=== PATIENT | male | born 1950 | race Caucasian/White ===

== ENCOUNTER 2018-09-23 18:20 | Emergency (ER) | payer MEDICARE, OTHER ==
[~2018-09-23] VITALS: Ht 177.8 cm; Wt 87.5 kg
[~2018-09-23 18:20] MED LIST: ACETAMINOPHEN650 M5; ADULT LOW DOSE81 MG PO; ASPIRIN325; BENADRYL25 MG PO; DULCOLAX STOOL100 MG PO; LISINOPRIL20 MG PO; METAMUCIL PAC1 UDPKT; MOM; NICOTINE TRANSD14 M1; NORCO 5-325 TA1 EACH PO; PERCOCET 5-3251 EACH; PRILOSEC 20 MG20 MG PO; TRAMADOL 50 MG50 MG PO; XARELTO10 M1
[2018-09-23] MEDS ORDERED: COZAAR 25 MG TA25 M1 PO (18:36)
[2018-09-23] MEDS ORDERED: MOBIC15 MG PO (18:36)
[2018-09-23] MEDS ORDERED: KEFLEX500 M1 PO (20:31)
[2018-09-23] MEDS ORDERED: NORCO 7.5-3251 EACH PO (20:31)
[2018-09-23 20:40] VITALS: BP 177/90
--- NOTE | 2018-09-28 13:59 | CON ---
[address] [address] CONSULTATION Name: RAHELKATE L Room: [facility]#: [id number] Admission: 09/23/18 Attend Phys: Discharge: 09/23/18 Date of : 50 Report #: [id number] THIS REPORT FOR: //name// CC: Deon Diggs DICTATED BY: Aaron Davila DO DATE OF SERVICE: 09/23/2018 CHIEF COMPLAINT: Right hand injury. HISTORY OF PRESENT ILLNESS: This is a 68-year-old male who presents today after a right hand injury. He was working with a log splitter when he smashed his fingers when he thought he was putting this up. He had immediate pain and deformity to his long and ring fingers of the right hand. He is right hand dominant. He states his fingers have been numb for about the last 3 months or so. He states this has not been worked up. He assumes it is carpal tunnel. He states he just woke up one day and his fingers were numb. He currently denies pain to any other extremity. PAST MEDICAL HISTORY: Significant for hypertension, GERD, and hepatitis C. PAST SURGICAL HISTORY: 1. Lumbar spine fusion. 2. Cervical spine fusion. 3. Right total knee arthroplasty. 4. Left total knee arthroplasty. CURRENT MEDICATIONS: Meloxicam, losartan and acetaminophen. DRUG ALLERGIES: No known drug allergies. FAMILY HISTORY: Noncontributory. SOCIAL HISTORY: Denies alcohol, tobacco or drug use. REVIEW OF SYSTEMS: A 12-point review of systems obtained and negative except for HPI. PHYSICAL EXAMINATION: VITAL SIGNS: Pulse 93, blood pressure 161/107, temperature 36.3, respirations 16. Height 177.8 cm, weight 87.5 kg. GENERAL: Alert, oriented, no acute distress. HEAD: Normocephalic, atraumatic. EYES: [place] [address] CONSULTATION Name: RAHELKATE Alix Room: [facility]#: [id number] Admission: 09/23/18 Attend Phys: Discharge: 09/23/18 Date of : 50 Report #: [id number] EARS: Normal hearing. NOSE: Nares patent. NECK: Supple, nontender. RESPIRATORY: No respiratory distress. No accessory muscle use. CARDIOVASCULAR: Normal peripheral perfusion. ABDOMEN: Nontender. NEUROLOGIC: Gross motor and sensation intact. SKIN: Warm and dry. EXTREMITIES: There is an amputation of the ring finger through the base of the distal phalanx. There is exposed flexor tendon to the volar aspect of the ring finger as well as a small amount of exposed distal phalanx to the volar aspect of the finger. There are superficial lacerations to the dorsal and volar aspect of the long finger dorsally at the DIP joint, volarly over the middle phalanx. Sensation is severely diminished to all digits. He is able to flex and extend at all joints. Radiographs were reviewed, which show a traumatic amputation through the base of the distal phalanx of the ring finger. There is also a fracture of the distal phalanx of the long finger consistent with a mallet finger. IMPRESSION: Right hand crush injury with traumatic amputation and open fractures. PLAN: After discussion with the patient, I would re-recommend irrigation and debridement in the Emergency Department as well as closure and splinting of the right hand. He was given Ancef upon arrival to the Emergency Department. After the procedure, the patient was placed in an extension splint to the long finger and a soft dressing to the remainder of the hand. He will follow up in orthopedic clinic for further care. PROCEDURE NOTE: The right ring and long fingers were anesthetized with a total of 10 mL of 1% lidocaine plain. Next, the skin was loosely approximated with 5-0 nylon sutures in simple interrupted fashion. There was no exposed bone following soft tissue closure. A dressing of Adaptic nonadherent gauze, 4 x 4s, Ally and an Sd wrap was applied to the right upper extremity. An aluminum extension splint was applied to the right long finger. The patient tolerated this procedure well. There were no complications. <ELECTRONICALLY SIGNED> By: Mich Amaral DO 09/28/18 [id number] Bahman Amaral DO /nt
== END 2018-09-23 20:40 | disposition home or self-care (01) ==
LOC: M.ERS 18:20
DX: S62.632B Displaced fracture of distal phalanx of right middle finger, initial encounter for open fracture (principal); S61.224A Laceration with foreign body of right ring finger without damage to nail, initial encounter; K21.9 Gastro-esophageal reflux disease without esophagitis; I10 Essential (primary) hypertension; Z90.49 Acquired absence of other specified parts of digestive tract; Z86.19 Personal history of other infectious and parasitic diseases; W23.0XXA Caught, crushed, jammed, or pinched between moving objects, initial encounter; Y93.89 Activity, other specified; Y92.89 Other specified places as the place of occurrence of the external cause; Y99.8 Other external cause status